=== PATIENT | male | born 1955 | race Caucasian/White ===

== ENCOUNTER → 2020-10-30 | Outpatient (CLI) | payer MEDICARE, OTHER | LOC: RAD 09:00 | PROC: BP38Y0Z Magnetic Resonance Imaging (MRI) of Right Shoulder using Other Contrast, Unenhanced and Enhanced (ICD-10-PCS; principal; 2020-10-30) | DX: M25.512 Pain in left shoulder (principal); G89.29 Other chronic pain | CPT/HCPCS: 73040; 73222; Q9962 ==

== ENCOUNTER 2022-02-27 14:03 | Emergency (ER) | payer MEDICARE, OTHER ==
[2022-02-27] MEDS ORDERED: CEPHALEXIN500 M1 PO (16:50)
[2022-02-27] MEDS ORDERED: ENDOCET 5-3251 EACH PO (16:50)
== END 2022-02-27 17:32 | disposition home or self-care (01) ==
LOC: ER1 14:03
DX: E11.621 Type 2 diabetes mellitus with foot ulcer (principal); L97.529 Non-pressure chronic ulcer of other part of left foot with unspecified severity; F17.210 Nicotine dependence, cigarettes, uncomplicated
CPT/HCPCS: 99282